=== PATIENT | male | born 1975 | race Caucasian/White ===

== ENCOUNTER 2020-09-23 08:30 | Day surgery (SDC) | payer OTHER, SELFPAY ==
[~2020-09-23] VITALS: Ht 172.7 cm; Wt 144.2 kg
[2020-09-23] MEDS ORDERED: MIDAZOLAM 5 MG/5 ML VIAL ONE (11:24)
[2020-09-23] MEDS ORDERED: fentaNYL citrate 0.05 MG/ML VIAL ONE (11:24)
[2020-09-23] MEDS ORDERED: MIDAZOLAM 2 MG/2 ML VIAL IVP ONE (11:45)
== END 2020-09-23 12:40 | disposition home or self-care (01) ==
LOC: MDS 08:30 → MMU 08:38 → MDS 12:40
PROVIDERS: ATTEND Internal Medicine Gastroenterology
DX: R11.2 Nausea with vomiting, unspecified (principal); I10 Essential (primary) hypertension; K21.9 Gastro-esophageal reflux disease without esophagitis; E66.9 Obesity, unspecified; E66.01 Morbid (severe) obesity due to excess calories; Z98.84 Bariatric surgery status; Z20.822 Contact with and (suspected) exposure to COVID-19; Z98.890 Other specified postprocedural states
CPT/HCPCS: 43235; J2250; J3010; U0003

== ENCOUNTER 2021-04-28 10:08 | Day surgery (SDC) | payer OTHER, SELFPAY ==
[~2021-04-28] VITALS: Ht 172.7 cm; Wt 142.9 kg
[2021-04-28] MEDS ORDERED: fentaNYL citrate 0.05 MG/ML VIAL ONE (13:18)
[2021-04-28] MEDS ORDERED: LIDOCAINE 2% 100 MG/5 ML UJET TP ONE (13:19)
[2021-04-28] MEDS ORDERED: MIDAZOLAM 5 MG/5 ML VIAL ONE (13:19)
[2021-04-28] MEDS ORDERED: fentaNYL citrate 0.05 MG/ML VIAL IVP ONE (13:55)
[2021-04-28] MEDS ORDERED: MIDAZOLAM 2 MG/2 ML VIAL IVP ONE (13:55)
== END 2021-04-28 14:20 | disposition home or self-care (01) ==
LOC: MOR 10:08 → MMU 10:08 → MOR 14:20
PROVIDERS: ATTEND Internal Medicine Gastroenterology
DX: Z12.11 Encounter for screening for malignant neoplasm of colon (principal); K21.00 Gastro-esophageal reflux disease with esophagitis, without bleeding; K44.9 Diaphragmatic hernia without obstruction or gangrene; I10 Essential (primary) hypertension; J45.909 Unspecified asthma, uncomplicated; E66.01 Morbid (severe) obesity due to excess calories; Z90.49 Acquired absence of other specified parts of digestive tract; Z20.822 Contact with and (suspected) exposure to COVID-19; Z79.899 Other long term (current) drug therapy
CPT/HCPCS: 36415; 43239; 45378; 86677; 87426; J2250; J3010